=== PATIENT | male | born 1965 | race Caucasian/White ===

== ENCOUNTER 2019-01-03 07:25 | Outpatient (REF) | payer BC, SELFPAY ==
[2019-01-03 13:38] LABS: ALT 31 U/L (12-78); AST 20 U/L (15-37); Albumin 3.7 g/dL (3.4-5.0); Alkaline Phosphatase 86 U/L (46-116); Anion Gap 8.1 mmol/L (3-11); BUN 12 mg/dL (7-18); Bilirubin, Total 0.6 mg/dL (0.2-1.0); CO2 29.9 mmol/L (21.0-32.0); CREATININE 0.88 mg/dL (0.70-1.30); Calcium 9.2 mg/dL (8.5-10.1); Calculated LDL 145; Chloride 103 mmol/L (98-107); Cholesterol 230 mg/dL (50-200); Glucose 99 mg/dL (70-100); HDL Cholesterol 48 mg/dL (40-60); Potassium 4.4 mmol/L (3.5-5.1); Sodium 141 mmol/L (136-145); Total Protein 6.9 g/dL (6.4-8.2); Triglyceride 187 mg/dL (30-150)
== END 2019-01-03 07:45 ==
LOC: NCHCN 07:25
PROVIDERS: PCP Nurse Practitioner Family; Visit Provider Nurse Practitioner Family
DX: I10 Essential (primary) hypertension (principal); R74.0 Nonspecific elevation of levels of transaminase and lactic acid dehydrogenase [LDH]; Z13.220 Encounter for screening for lipoid disorders
CPT/HCPCS: 80053; 80061; 83721

== ENCOUNTER 2019-04-15 11:12 | Day surgery (SDC) | payer BC, SELFPAY ==
--- NOTE | 2019-04-15 06:47 | W.COLOREPORT ---
Date of service: 04/15/19 Time of Service: 12:10 Colonoscopy Report Date of procedure: 04/15/19 Pre-op diagnosis general: Colon Cancer Screening Post-op diagnosis procedure note: other (Colorectal polyps and diverticulosis) Procedure: Colonoscopy with polypectomy by cold forceps and hot snare Surgeon: Yolanda Juárez Anesthesia proc note operative: other (General/ ASA 2 /Rohit Doherty, ABHIJEET) Estimated blood loss (mL): 3 Pathology: other (Ascending polyp x1, sigmoid polyp x1, rectal polyp x1) Complications: None Disposition: same day Indications: Mr. Morton is a pleasant 53 year old male seen in the office for their first colonoscopy. Risks, benefits and complications have been reviewed. Complications include but are not limited to bleeding, pain, perforation, missed small lesion/polyp, sore throat, aspiration and adverse reaction to the medications. Questions were entertained and answered to their satisfaction and they wished to proceed. No guarantees were given or implied. Prep: Miralax/Dulcolax Procedure Start Time: 12:10 Procedure End Time: 12:47 Retraction Time: 29 minutes Findings: 3 large polyps removed with hot snare One small sessile polyp removed with cold forceps Procedure Description: After informed consent was obtained the patient was taken to the procedure room and placed in a left decubitous position. Monitors were applied and a time out was done. The patients name, date of , procedure, allergies to medications and metal in their body was reviewed. The patient was then sedated. Once sedated and comfortable a rectal exam was done. External exam was normal. Internal exam revealed a normal sphincter tone and no palpable masses. The prostate felt smooth. The scope was then introduced and retrofelexed. No internal hemorrhoids were identified. There was a >1 cm pedunculated polyp noted in the rectum. The scope was then advanced to the cecum without difficulty. The TI and appendiceal orifice were identified. The prep was adequate. The scope was then slowly retracted over 29 minutes back into the rectum. Polyps were removed with a hot snare in the ascending colon, one with cold forceps in the sigmoid colon and another with a hot snare in the rectum. Mild to moderate diverticulosis was noted in the descending and sigmoid colon. The scope was removed and the patient was woken up and taken back to Same day surgery in stable condition. The patient tolerated the procedure well and there were no immediate complications. Follow up: Follow up depends on final pathology.
--- NOTE | 2019-04-15 06:49 | W.PM.DSUDISC ---
Discharge Plan Disposition Patient Disposition: HOME Condition: Good Discharge Details Reason For Visit: Colonoscopy Attending Provider: Yolanda Juárez Primary Care Provider: Makayla Figueroa Home Meds and New Rx's Prescriptions: Continued lisinopril 10 mg tablet 10 mg PO DAILY RF: 0 aspirin [Adult Aspirin Regimen] 81 mg tablet,delayed release (DR/EC) 81 mg PO DAILY RF: 0 Discontinued polyethylene glycol 3350 17 gram/dose powder 238 g PO ONCE Qty: 238 RF: 0 bisacodyl [Dulcolax (bisacodyl)] 5 mg tablet,delayed release (DR/EC) 5 mg PO ONCE Qty: 4 RF: 0 Discharge Instructions Instructions: Colonoscopy (DC), Diverticulosis (DC), Colorectal Polyps (GEN) Additional Instructions: Findings: 3 polyps Moderate diverticulosis Follow up: depends on final pathology Please call if you develop: fevers >101.5 Nausea or Vomiting Abdominal pain that is not transient DAY SURGERY UNIT POST ENDOSCOPY INSTRUCTIONS 1. Because there will be medication in your system for the next 24 hours, you may feel a little sleepy. Your coordination will be affected. Therefore: a. Do not drive or operate dangerous equipment for 24 hours. b. Do not drink alcohol beverages for 24 hours (not even beer). c. Plan to go home and rest for the day. 2. Generally there are no restrictions on your activity after a day or so has gone by, but you may feel a bit fatigued for a few days. 3 After you arrive home you may have a light meal and return to a normal diet as you can tolerate it without feeling sick to your stomach. 4. After surgery, you may feel pain or discomfort. This should be only transient, but if it persists please contact your doctor. 5. If there are any questions regarding the findings of your procedure, please feel free to contact your doctor. 6. If you are unable to contact your doctor with a problem, contact the hospital at [phone]. 7. Continue all your regular medications unless directed otherwise. I understand the above instructions and have no questions. Signature of Patient or Responsible Adult Escort Date/Time Name of Responsible Adult Escort Signature of Nurse Date/Time Referrals: Makayla Figueroa [Primary Care Provider] - (in 2-3 weeks for HIgh BP ) Activity:: Activity as Tolerated Diet:: High Fiber diet Discharge Orders Discharge Orders: Discharge Order (Routine); Ordered 04/15/19 Ordered By: Yolanda Juárez DS: Diagnosis Discharge Diagnosis (1) S/P colonoscopy: Status: Acute (2) Colorectal polyps: Status: Acute (3) Diverticulosis: Status: Acute
[2019-04-15 11:40] VITALS: BP 172/89; PULSE 68; RESP 16; TEMP 36.7; O2SAT 99
[2019-04-15] MEDS: Lactated Ringers 1,000 ML 80 ML IV (11:55)
--- NOTE | 2019-04-15 12:20 | BOWEL_PTH ---
PATIENT: Jose Guadalupe Morton LOC: [facility] U#:[id number] AGE/SX: 53/M ROOM: RE04/15/[address]: Yolanda Juárez MD : 1965 BED: DIS: 04/15/2019 SPEC #: [id number] RECD: 04/15/19 18:19 STATUS: [facility] REQ #: [id number] RACHID: 04/15/19 12:[address]: Yolanda Juárez DEPT: Surgical Specimen RECD BY: Liz Amaya ENTERED: 04/15/19 18:20 SP TYPE: Bowel OTHR DR: Makayla Figueroa Tissues: 1 - BIOPSY BOWEL 2 - BIOPSY BOWEL 3 - BIOPSY BOWEL Procedures: GROSS AND MICRO LEVEL 4 Comments: [id number]
[2019-04-15 13:20] VITALS: BP 156/74; PULSE 59; RESP 16; TEMP 36.7; O2SAT 97
== END 2019-04-15 13:46 | disposition home or self-care (01) ==
LOC: SUR 11:12
PROVIDERS: PCP Nurse Practitioner Family; Visit Provider Surgery
PROC: 0DJD8ZZ Inspection of Lower Intestinal Tract, Via Natural or Artificial Opening Endoscopic (ICD-10-PCS; CPT 45378; principal; 2019-04-15 12:15)
DX: Z12.11 Encounter for screening for malignant neoplasm of colon (principal); K57.30 Diverticulosis of large intestine without perforation or abscess without bleeding; D12.2 Benign neoplasm of ascending colon; K63.5 Polyp of colon; D12.8 Benign neoplasm of rectum; I10 Essential (primary) hypertension
CPT/HCPCS: 45385; 45380; 88305

== ENCOUNTER 2019-08-14 18:46 | Inpatient (IN) | payer BC, SELFPAY ==
[2019-08-14 18:51] VITALS: BP 175/104; PULSE 84; RESP 16; TEMP 36.7; O2SAT 97
--- NOTE | 2019-08-14 18:58 | NUR.NOTE ---
Left side abd pain since 08/11/2019. Pt was seen at PCP office on 08/12/2019. was told to eat bland food, CT would be ordered. Pt states no CT has been ordered yet, having continued pain. Worse after eating. Denies N/V. + Watery stools. subjective fevers.
--- NOTE | 2019-08-14 19:06 | ED.GENADUL_ITS ---
Discharge Plan Discharge Details Chief Complaint: Abd Prob Primary Care Provider: Makayla Figueroa ED Provider: Gem Kwon Home Meds and New Rx's Prescriptions: No Action lisinopril 10 mg tablet 10 mg PO DAILY RF: 0 aspirin [Adult Aspirin Regimen] 81 mg tablet,delayed release (DR/EC) 81 mg PO DAILY RF: 0 Medical Decision Making 53 year old male presents with LLQ abdominal pain associated with diarrhea. FINDINGS: Lungs: There are slight dependent atelectatic changes at the lung bases. Heart: The visualized portions of the heart and pericardium are unremarkable. Liver: The liver is within normal limits. Gallbladder and bile ducts: The gallbladder is within normal limits. Pancreas: The pancreas is within normal limits. Spleen: The spleen is unremarkable. Adrenals: The adrenal glands are within normal limits. Kidneys and ureters: The kidneys are within normal limits. Stomach and bowel: There is mucosal thickening and diverticuli at the level of the junction of the descending and sigmoid colons. This is the suspicious for acute diverticulitis. There is pericolonic inflammation of the mesenteric fat. A small pericolonic abscess is suspected measuring approximately 2.6 cm. There is no evidence of a perforation. Appendix: The appendix is visualized and is within normal limits. SIMON CLAY Preliminary Radiology Report CHILD CARE DEVELOPMENT SPECIALIST (QA) DISCREPANCY? If there is a discrepancy between the preliminary and final interpretation, please notify [facility] via [email or web address]. If you do not have access to our QA portal, call our QA team at [phone] CONFIDENTIALITY STATEMENT This report is intended only for the use of the referring physician, and only in accordance with law, If you received this in error, call [phone] Page 2 of 2 Intraperitoneal space: See Stomach And Bowel Finding. Vasculature: Unremarkable. No abdominal aortic aneurysm. Lymph nodes: No enlarged lymph nodes. Bladder: The urinary bladder is unremarkable. Reproductive: The prostate and seminal vesicles are within normal limits. Bones/joints: There are degenerative changes of the thoracic and lumbar spines. There is degenerative disc disease at L5-S1. There is a disc osteophyte complex at this level. Soft tissues: There is a fat containing umbilical hernia. There are bilateral small fat containing incipient inguinal hernias. IMPRESSION: Diverticulitis as above. Please see discussion above. Osseous findings as above CT results are noted above. Page placed for surgery transformation manager. Dr. Bob. Spoke with Dr. Bob who agrees to admit patient, patient informed and aware of plan of care. Cipro and Flagyl IVPB ordered. Patient was hemodynamically stable and alert and oriented at this time. Differential Diagnosis Differential Diagnosis: diverticulitis, gastroenteritis, kidney stone, Lab Data Lab results reviewed: Yes I reviewed the patient's lab results. HPI General Date/Time Provider Initiated Documentation: 08/14/19 18:50 . Limitations to Documentation: no limitations . Information obtained by: patient . History of Present Illness 53 year old M presents to the emergency department with the chief complaint of abdominal pain, described as moderate, with intensity rated at 6. Quality is described as sharp, and is localized to the abdomen. Patient reports no radiation. Patient started experiencing this day(s) (5) and it has been intermittent. No relieving factors improve symptom(s), Patient notes diaphoresis and other (diarrhea); denies nausea/vomiting. Patient did receive the following treatments prior to arrival, none HPI Narrative: 53 y/o male presents with LLQ abdominal pain. He reports onset 5 days ago associated with diarrhea and intermittent diaphoresis. Denies dysuria, or vomiting. No abdominal surgical history. Related Data Home Medications Medication Instructions Recorded Confirmed aspirin 81 mg tablet,delayed 81 mg PO DAILY 01/25/19 08/14/19 release lisinopril 10 mg tablet 10 mg PO DAILY 01/25/19 08/14/19 Allergies Allergy/AdvReac Type Severity Reaction Status Date / Time No Known Allergies Allergy Verified 04/15/19 11:38 General Stated Complaint: Abd Prob DAMIAN: 3 Review of Systems Constitutional Constitutional: Reports as per HPI, Reports fatigue and Denies fever(s) Respiratory Respiratory: Reports other (SOB) Gastrointestinal Gastrointestinal: Reports abdominal pain, Reports diarrhea, Reports loose stools and Denies vomiting Genitourinary Genitourinary: Denies difficulty urinating and Denies dysuria Endocrine Endocrine: Reports fatigue [facility] Medical History Alcohol dependence (Chronic) Chest pain (Acute) one episode 10/2017 while working and running up stairs, negative w/up in ER and negative stress test, no further symptoms since this one episode. Diverticulosis (Acute) Elevated serum aspartate aminotransferase level (Chronic) HTN (hypertension) (Chronic) Snoring (Chronic) Surgical History Hx of tonsillectomy (Chronic) S/P colonoscopy (Acute ~04/15/19) sessile serrated adenoma x1; tubulovillous adenoma x1. Social History Smoking/Tobacco Use Status: Never Alcohol Intake: current Alcohol Intake frequency: 0-2 drinks per day Alcohol type: beer Drug use: Socially Substance use type: marijuana Do you feel safe at home: Yes Do you feel safe in your relationship?: Yes Exam Const General: cooperative, healthy appearing, comfortable and no acute distress Orientation: alert, awake and oriented x3 Resp Effort & Inspection: normal respiratory effort Auscultation: clear to auscultation bilaterally, no rales, no rhonchi and no wheezes Cardio Rhythm: regular rhythm Heart Sounds: S1 normal and S2 normal GI Inspection: normal to inspection, no abdominal wall ecchymosis and non-distended Palpation: soft Auscultation: hyperactive bowel sounds Rectal Exam: tenderness (LLQ abdominal pain) Course Vital Signs Vital signs: Vital Signs Temperature 36.7 C 08/14/19 18:51 Pulse 84 08/14/19 18:51 Respiratory Rate 16 08/14/19 18:51 Blood Pressure 175/104 H 08/14/19 18:51 Pulse Oximetry 97 08/14/19 18:51 Temperature 36.7 C 08/14/19 18:51 Temperature Source Skin 08/14/19 18:51 Pulse 84 08/14/19 18:51 Respiratory Rate 16 08/14/19 18:51 Respiratory Effort 08/14/19 18:57 Blood Pressure 175/104 H 08/14/19 18:51 Blood Pressure Position Sitting 08/14/19 18:51 Pulse Oximetry 97 08/14/19 18:51 Oxygen Delivery Method Room Air 08/14/19 18:51 Oxygen Flow Rate 0 08/14/19 18:51 Pain Level 7 08/14/19 18:51 Comment 08/14/19 18:51
[2019-08-14] MEDS: Normal Saline 1,000 ML 1000 ML IV (19:20)
[2019-08-14] MEDS: Ondansetron O.D.T. 4 MG TABEF PO (19:20)
[2019-08-14 19:21] LABS: Abs Immature Grans 0.01 k/cumm (0.0-0.09); Absolute Basophil Count 0.01 k/cumm (0.0-0.2); Absolute Eosinophil Count 0.03 k/cumm (0.0-0.7); Absolute Monocyte Count 0.78 k/cumm (0.11-0.7); Absolute Neutrophil Count 7.68 k/cumm (1.2-6.7); Basophils % 0.1; Eosinophils % 0.3; HCT 44.7 % (40.0-50.0); HGB 14.7 g/dL (13.5-17.5); Immature Grans % 0.1 %; Lymphocytes % 8.6; Mean Corp. HGB Concentration 32.9 g/dL (32.0-36.0); Mean Corpuscular Hemoglobin 31.9 pg (27.0-33.0); Mean Platelet Volume 10.1 fL (8.0-11.0); Monocytes % 8.4; Neutrophils % 82.5; Platelet Count 172 x1000/uL (130-400); RBC 4.61 m/cumm (4.50-6.00); RBC Distribution Width 12.8 % (11.8-14.1); White Blood Cell Count 9.31 k/cumm (4.4-10.8)
[2019-08-14] MEDS: fentaNYL 100 MCG/2 ML VIAL 50 MCG IVP (19:21)
[2019-08-14] MEDS: Normal Saline Flush 10 ML SYR IVP (19:22)
[2019-08-14 19:31] LABS: ALT 20 U/L (16-63); AST 18 U/L (15-37); Albumin 3.6 g/dL (3.4-5.0); Alkaline Phosphatase 85 U/L (46-116); Anion Gap 13.7 mmol/L (3-11); BUN 13 mg/dL (7-18); Bilirubin, Direct 0.22 mg/dL (0.00-0.20); Bilirubin, Total 0.6 mg/dL (0.2-1.0); CO2 27.3 mmol/L (21.0-32.0); CREATININE 0.89 mg/dL (0.70-1.30); Calcium 9.9 mg/dL (8.5-10.1); Chloride 99 mmol/L (98-107); Glucose 96 mg/dL (74-106); Lipase 172 U/L (73-393); Potassium 3.7 mmol/L (3.5-5.1); Sodium 140 mmol/L (136-145); Total Protein 8.3 g/dL (6.4-8.2)
[2019-08-14 19:44] VITALS: BP 162/72; PULSE 78; RESP 16; O2SAT 99
--- NOTE | 2019-08-14 19:44 | NUR.NOTE ---
pain to 7 after fentanyl, pt reports as tolerable. Drinking PO contrast for CT.
[2019-08-14 19:47] LABS: Bilirubin Moderate (Negative); Blood Moderate (Negative); Clarity Sl Cloudy (Clear); Glucose Negative (Negative); Ketones >=160 mg/dL (Negative); Leukocyte Esterase Negative (Negative); Nitrite Negative (Negative); Specific Gravity >= 1.030 (1.005-1.025); Urobilinogen 0.2 EU/dL (Up TO 0.2)
[2019-08-14 19:58] LABS: Bacteria Few HPF (Negative); C & S Indicated? No; WBC 0-2 HPF (0-5)
[2019-08-14] MEDS: Omnipaque 350 MG/ML 50 ML BTL IJ (20:42)
[2019-08-14] MEDS: Omnipaque 350 MG/ML 100 ML BTL IJ (20:42)
--- NOTE | 2019-08-14 20:43 | DI.CT_ITS ---
EXAM: CT ABDOMEN PELVIS W CLINICAL HISTORY: LLQ abdominal pain TECHNIQUE: Post IV and oral contrast. COMPARISON: No exams were available for comparison FINDINGS: Lung bases show minimal dependent changes. The heart size is normal. The liver, gallbladder, pancr eas, spleen, adrenals and kidneys are unremarkable. The appendix appears normal. There is inflammat ion at the lower descending colon. There are multiple diverticula of the descending colon and proxim al sigmoid. The findings are consistent with diverticulitis. There is a small abscess, measuring 2. 5 cm seen within the wall of the at the of the colon at the junction of the descending and sigmoid re gion. There is no free fluid. There is no evidence of bowel obstruction. The stomach and small bow el are unremarkable. There is fat at the umbilicus. The bladder and prostate are unremarkable. Deg enerative changes are seen in the spine greatest at L5-S1. IMPRESSION: Diverticulitis at the with small intramural abscess at the junction of the descending and sigmoid col on.
[2019-08-14] MEDS: Breeza Beverage 473 ML BTL PO ×2 (20:47→20:50)
--- NOTE | 2019-08-14 21:22 | DI.VRAD_ITS ---
PROCEDURE INFORMATION: Exam: CT Abdomen And Pelvis With Contrast Exam date and time: 08/14/2019 7:02 PM Age: 53 years old Clinical indication: Abdominal pain; Localized; Left lower quadrant (llq); Additional info: Abd pain since 08/10/19 TECHNIQUE: Imaging protocol: Computed tomography of the abdomen and pelvis with intravenous contrast. Radiation optimization: All CT scans at this facility use at least one of these dose optimization techniques: automated exposure control; mA and/or kV adjustment per patient size (includes targeted exams where dose is matched to clinical indication); or iterative reconstruction. Contrast material: [id number]; Contrast volume: 100 ml; Contrast route: IV 20G LT AC; COMPARISON: No relevant prior studies available. FINDINGS: Lungs: There are slight dependent atelectatic changes at the lung bases. Heart: The visualized portions of the heart and pericardium are unremarkable. Liver: The liver is within normal limits. Gallbladder and bile ducts: The gallbladder is within normal limits. Pancreas: The pancreas is within normal limits. Spleen: The spleen is unremarkable. Adrenals: The adrenal glands are within normal limits. Kidneys and ureters: The kidneys are within normal limits. Stomach and bowel: There is mucosal thickening and diverticuli at the level of the junction of the descending and sigmoid colons. This is the suspicious for acute diverticulitis. There is pericolonic inflammation of the mesenteric fat. A small pericolonic abscess is suspected measuring approximately 2.6 cm. There is no evidence of a perforation. Appendix: The appendix is visualized and is within normal limits. Intraperitoneal space: See Stomach And Bowel Finding. Vasculature: Unremarkable. No abdominal aortic aneurysm. Lymph nodes: No enlarged lymph nodes. Bladder: The urinary bladder is unremarkable. Reproductive: The prostate and seminal vesicles are within normal limits. Bones/joints: There are degenerative changes of the thoracic and lumbar spines. There is degenerative disc disease at L5-S1. There is a disc osteophyte complex at this level. Soft tissues: There is a fat containing umbilical hernia. There are bilateral small fat containing incipient inguinal hernias. IMPRESSION: Diverticulitis as above. Please see discussion above. Osseous findings as above. Dictated and Authenticated by: Cuco Silva MD. Ordering:KODY Rabago MD
[2019-08-14] MEDS: CIPROFLOXACIN 400 MG/200 ML BAG 200 MG IVPB (21:40)
--- NOTE | 2019-08-14 21:44 | HPE_ITS ---
Date of service: 08/14/19 Time of Service: 21:44 Assessment and Plan Assessment and plan (1) Diverticulitis of intestine with abscess without bleeding: Status: Acute Assessment and plan: admit IV abx and bowel rest has had a recent CE see how he progresses on abx abscess is not alrge enough/organized enough for perc drain. History of Present Illness Consults Consult date: 08/14/19 Pt states the pain started about 4 days ago. He denies trauma or travel. He has been off of work and actually eating healthier. He has never had diverticulitis in the past. He did recent have a CE- this was reviewed. no N/v. + fever /chills. Narrative: Acute diverticulitis w/ abscess. CT adn CE rreviewed. Pt admitted for IV and abx and conservative medical care. 2.6cm abcess. Borderline for perc drainage. Cont w/ conservative management and see how he progresses in the next 48 hrs. He denies any trauma. He is a school bus driver/teacher assistant, and has been off of school, and eating at home, more Review of Systems All systems reviewed & are unremarkable except as noted in HPI and below [facility] Medical History (Updated 08/14/19 @ 21:47 by Cortney Bob DO) Alcohol dependence (Chronic) Chest pain (Acute) one episode 10/2017 while working and running up stairs, negative w/up in ER and negative stress test, no further symptoms since this one episode. Diverticulitis of intestine with abscess without bleeding (Acute) Diverticulosis (Acute) Elevated serum aspartate aminotransferase level (Chronic) HTN (hypertension) (Chronic) Snoring (Chronic) Surgical History Hx of tonsillectomy (Chronic) S/P colonoscopy (Acute ~04/15/19) sessile serrated adenoma x1; tubulovillous adenoma x1. Social History Smoking/Tobacco Use Status: Never Alcohol Intake: current Alcohol Intake frequency: 0-2 drinks per day Alcohol type: beer Drug use: Socially Substance use type: marijuana Do you feel safe at home: Yes Do you feel safe in your relationship?: Yes Meds Home Medications and Allergies Home Medications Medication Instructions Recorded Confirmed Type aspirin 81 mg tablet,delayed 81 mg PO DAILY 01/25/19 08/14/19 History release lisinopril 10 mg tablet 10 mg PO DAILY 01/25/19 08/14/19 History Allergies Allergy/AdvReac Type Severity Reaction Status Date / Time No Known Allergies Allergy Verified 04/15/19 11:38 Exam Const General: cooperative, healthy appearing, comfortable, no acute distress, well developed and well groomed Nutritional Appearance: average body habitus and well nourished Orientation: alert, awake and oriented x3 HENMT Head: normal to inspection, normocephalic and atraumatic Ears: hearing grossly normal bilaterally and external ears normal General nose exam: external nose normal Face and sinus: normal facial exam and sinuses nontender Mouth: oral mucosae normal, lip normal, tongue normal and moist mucous membranes Teeth and gingiva: dentition normal Eyes General: appearance normal, both eyes and all related structures Conjunctivae: conjunctivae normal Sclera: sclerae normal Pupils: PERRL Neck Neck: normal visual inspection and full ROM Chest Chest: normal inspection of the chest Resp Effort & Inspection: normal respiratory effort, able to speak in complete sentences, no cough, no nasal flaring, not tachypneic and no use of accessory muscles Auscultation: clear to auscultation bilaterally, no rales, no rhonchi and no wheezes Cardio Jugular venous pressure: no JVD Rate: regular rate Rhythm: regular rhythm GI Inspection: normal to inspection, no edema and non-distended Palpation: soft, no masses, tender (moderate. + rebound and guarding ) in the LLQ and No ascites Auscultation: normal bowel sounds Skin General skin exam: no rashes or lesions noted Trauma: no lacerations or abrasions Neuro General: alert, oriented x3, oriented, gait normal, moves all extremities, no focal motor deficits and CN's II-XI intact bilaterally Cognition: normal cognition Speech: speech normal Gait: normal gait Motor: muscle tone normal throughout Extrem General: normal to inspection, full ROM and no clubbing, cyanosis or edema Psych Appearance: grossly normal and well kempt Mental Status: mental status grossly normal Speech and Movement: speech and movement normal Affect: normal affect Results Labs Result diagrams: 08/15/19 06:20 08/15/19 06:20 Labs: Laboratory Results - last 24 hr 01/08/14/19 08/14/19 19:10 19:10 19:40 WBC 9.31 RBC 4.61 Hgb 14.7 Hct 44.7 MCV 97.0 H MCH 31.9 MCHC 32.9 RDW 12.8 Plt Count 172 MPV 10.1 Immature Gran % 0.1 Neutrophils % 82.5 Lymphocytes % 8.6 Monocytes % 8.4 Eosinophils % 0.3 Basophils % 0.1 Absolute Neutrophils 7.68 H Absolute Lymphocytes 0.80 L Absolute Monocytes 0.78 H Absolute Eosinophils 0.03 Absolute Basophils 0.01 Sodium 140 Potassium 3.7 Chloride 99 Carbon Dioxide 27.3 Anion Gap 13.7 H BUN 13 Creatinine 0.89 Estimated GFR/1.73 m2 >= 60.00 Glucose 96 Calcium 9.9 Total Bilirubin 0.6 Conjugated Bilirubin 0.22 H AST 18 ALT 20 Alkaline Phosphatase 85 Total Protein 8.3 H Albumin 3.6 Lipase 172 Urine Color Yellow Urine Clarity Sl cloudy Urine pH 6.0 Ur Specific [place] >= 1.030 H Urine Protein 100 H Urine Ketones >=160 H Urine Blood Moderate H Urine Nitrite Negative Urine Bilirubin Moderate H Urine Urobilinogen 0.2 Ur Leukocyte Esterase Negative Urine RBC 3-5 H Urine WBC 0-2 Ur Epithelial Cells Not Applicable Urine Crystals Not Applicable Urine Bacteria Few Urine Mucus Not Applicable Ur Culture Indicated? No Urine Glucose Negative Last Vital Signs Temp 36.7 C 08/14/19 18:51 Pulse 78 08/14/19 19:44 Resp 16 08/14/19 19:44 BP 162/72 H 08/14/19 19:44 Pulse Ox 99 08/14/19 19:44
--- NOTE | 2019-08-14 21:51 | NUR.NOTE ---
Ambulated to BR with steady gait. Plan for admission. pt reports he is daily drinker, denies hx of withdrawal.
[2019-08-14 21:52] VITALS: BP 168/76; PULSE 88; RESP 16; TEMP 37.5; O2SAT 97
[2019-08-14 22:26] VITALS: BP 181/75; PULSE 80; RESP 18; TEMP 37.9; O2SAT 95
[2019-08-14 23:07] LABS: Abs Immature Grans 0.01 k/cumm (0.0-0.09); Absolute Basophil Count 0.01 k/cumm (0.0-0.2); Absolute Eosinophil Count 0.02 k/cumm (0.0-0.7); Absolute Lymphocyte Count 0.75 k/cumm (1.2-3.4); Absolute Neutrophil Count 6.92 k/cumm (1.2-6.7); Basophils % 0.1; Eosinophils % 0.2; HCT 40.8 % (40.0-50.0); HGB 13.6 g/dL (13.5-17.5); Immature Grans % 0.1 %; Lymphocytes % 8.9; Mean Corp. HGB Concentration 33.3 g/dL (32.0-36.0); Mean Corpuscular Hemoglobin 32.2 pg (27.0-33.0); Mean Corpuscular Volume 96.5 fL (80-95); Monocytes % 8.3; Neutrophils % 82.4; Platelet Count 159 x1000/uL (130-400); RBC 4.23 m/cumm (4.50-6.00); RBC Distribution Width 12.8 % (11.8-14.1); White Blood Cell Count 8.41 k/cumm (4.4-10.8)
[2019-08-14] MEDS: Ketorolac 15 MG/ML VIAL IVP (23:14)
[2019-08-14] MEDS: metroNIDAZOLE 500 MG/100 ML BAG 100 MG IVPB (23:14)
[2019-08-14] MEDS: Normal Saline 1,000 ML 150 ML IV (23:15)
[2019-08-14 23:21] VITALS: BP 181/75; PULSE 80; RESP 18; TEMP 37.9; O2SAT 95
[2019-08-14 23:56] LABS: ALT 17 U/L (16-63); AST 10 U/L (15-37); Albumin 2.8 g/dL (3.4-5.0); Alkaline Phosphatase 70 U/L (46-116); Anion Gap 13.2 mmol/L (3-11); BUN 11 mg/dL (7-18); Bilirubin, Total 0.6 mg/dL (0.2-1.0); CO2 22.8 mmol/L (21.0-32.0); CREATININE 0.78 mg/dL (0.70-1.30); Calcium 8.9 mg/dL (8.5-10.1); Chloride 102 mmol/L (98-107); Glucose 120 mg/dL (74-106); Magnesium 1.8 mg/dL (1.8-2.4); Potassium 3.7 mmol/L (3.5-5.1); Sodium 138 mmol/L (136-145); Total Protein 6.8 g/dL (6.4-8.2)
[2019-08-15 00:15] LABS: Troponin I < 0.05 ng/Ml (<0.06)
[2019-08-15] MEDS: ACETAMINOPHEN 1,000 MG/100 ML BTL 400 MG IVPB (01:00)
[2019-08-15 01:21] LABS: TSH (W/Ref FT4) 2.85 uIU/mL (0.36-3.74)
[2019-08-15] MEDS: cefTRIAXone 2 GM/50 ML BAG IVPB (01:59)
[2019-08-15 03:21] VITALS: BP 145/75; PULSE 60; RESP 17; TEMP 36.7; O2SAT 97
[2019-08-15] MEDS: Normal Saline 1,000 ML 150 ML IV ×2 (06:01→14:01)
[2019-08-15 07:00] LABS: Abs Immature Grans 0.01 k/cumm (0.0-0.09); Absolute Basophil Count 0.01 k/cumm (0.0-0.2); Absolute Eosinophil Count 0.07 k/cumm (0.0-0.7); Absolute Lymphocyte Count 1.03 k/cumm (1.2-3.4); Absolute Monocyte Count 0.79 k/cumm (0.11-0.7); Absolute Neutrophil Count 5.11 k/cumm (1.2-6.7); Basophils % 0.1; Immature Grans % 0.1 %; Lymphocytes % 14.7; Mean Corp. HGB Concentration 32.6 g/dL (32.0-36.0); Mean Corpuscular Hemoglobin 31.6 pg (27.0-33.0); Mean Corpuscular Volume 97.1 fL (80-95); Mean Platelet Volume 10.6 fL (8.0-11.0); Monocytes % 11.3; Neutrophils % 72.8; Platelet Count 165 x1000/uL (130-400); RBC 4.43 m/cumm (4.50-6.00); RBC Distribution Width 12.7 % (11.8-14.1); White Blood Cell Count 7.02 k/cumm (4.4-10.8)
[2019-08-15 07:12] LABS: ALT 17 U/L (16-63); AST 16 U/L (15-37); Albumin 2.8 g/dL (3.4-5.0); Alkaline Phosphatase 73 U/L (46-116); Anion Gap 10.2 mmol/L (3-11); BUN 10 mg/dL (7-18); Bilirubin, Total 0.5 mg/dL (0.2-1.0); C-Reactive Protein 16.07 mg/dL (0.0-0.3); CO2 26.8 mmol/L (21.0-32.0); CREATININE 0.82 mg/dL (0.70-1.30); Calcium 9.2 mg/dL (8.5-10.1); Chloride 105 mmol/L (98-107); Glucose 98 mg/dL (74-106); Potassium 4.2 mmol/L (3.5-5.1); Sodium 142 mmol/L (136-145); Total Protein 6.9 g/dL (6.4-8.2)
[2019-08-15 07:15] VITALS: BP 136/60; PULSE 59; RESP 18; TEMP 36.9; O2SAT 97
[2019-08-15] MEDS: Lisinopril 10 MG TAB PO (07:45)
[2019-08-15] MEDS: Enoxaparin 40 MG/0.4 ML SYR SC (07:45)
[2019-08-15] MEDS: Normal Saline Flush 10 ML SYR IVP (07:46)
[2019-08-15] MEDS: metroNIDAZOLE 500 MG/100 ML BAG 100 MG IVPB ×2 (07:46→16:36)
--- NOTE | 2019-08-15 08:40 | INITIAL_ITS ---
- If Service Date Differs Date of service: 08/15/19 Time of Service: 08:40 Care Management Initial Assess REASON FOR HOSPITALIZATION:: Diverticulitis PAST MEDICAL HISTORY/PAST SURGICAL HISTORY:: Medical History: Alcohol dependence (Chronic). Chest pain (Acute). one episode 10/2017 while working and running up stairs, negative w/up in ER and negative stress test, no further symptoms since this one episode. Diverticulitis of intestine with abscess witho ut bleeding (Acute). Diverticulosis (Acute). Elevated serum aspartate aminotransferase level (Chronic). HTN (hypertension) (Chronic). Snoring (Chronic). Surgical History : Hx of tonsillectomy (Chronic). S/P colonoscopy (Acute ~04/15/19). sessile serrated adenoma x1; tubulovillous adenoma x1. PREVIOUS FUNCTIONAL STATUS/SOCIAL/FAMILY SUPPORTS:: Jose Guadalupe lives alone in an apartment in [facility] provided by [facility] [employer] where he works. 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 He has 2 sons who are in college in [place].Jose Guadalupe is independent at baseline and receives no community services. CURRENT FUNCTIONAL STATUS:: Jose Guadalupe was sitting up in bed when CM met with him. He was pleasant and friendly and engaged readily in conversation. Jose Guadalupe stated that he is feeling much better today than he was when admitted. He has been NPO but his diet will be advanced later today.He stated that he is really thirsty and will look forward to being able to drink fluids. ADVANCE DIRECTIVES:: provided with a copy of the [facility] AD forms at his request. Has patient been provided with information about the portal?: Yes Did the patient sign up for the portal?: No CODE STATUS:: Full Code INSURANCE COVERAGE / FINANCIAL ISSUES:: BS CURRENT HOME/COMMUNITY SERVICES/EQUIPMENT:: none PRIMARY CARE PHYSICIAN:: Makayla Figueroa POTENTIAL DISCHARGE NEEDS:: follow up with PCP, surgeon and discharge plan of care PATIENT/FAMILY EDUCATION NEEDS:: Discharge plan, limitations, follow up plan and Ask Me Three. ANTICIPATED BARRIERS TO DISCHARGE:: none identified TRANSPORTATION:: via private vehicle with family PLAN:: Jose Guadalupe will likely be discharged with no new services. He will follow up with his surgeon and discharge plan of care and will transport via private vehicle with friends. CM will continue to support patient, family and discharge planning needs.
--- NOTE | 2019-08-15 14:48 | PGE_ITS ---
Date of Service Date of service: 08/15/19 Time of Service: 14:48 Assessment and Plan Assessment and plan (1) Diverticulitis of intestine with abscess without bleeding: Status: Acute Assessment and plan: cont IV abx cont supportive care prob d/c in am Subjective Subjective Interval history since last seen: Pt is feeling better- less pain. no headaches. No CP or SOB. no productive cough. no dysuria. no leg pain or swelling. Not much of an appetite. He did have a small episode of diarrhea this am- no blood. Exam Const General: cooperative, healthy appearing, comfortable, no acute distress, well developed and well groomed Nutritional Appearance: average body habitus and well nourished Orientation: alert, awake and oriented x3 HENMT Head: normal to inspection, normocephalic and atraumatic Ears: hearing grossly normal bilaterally and external ears normal General nose exam: external nose normal Face and sinus: normal facial exam and sinuses nontender Mouth: oral mucosae normal, lip normal, tongue normal and moist mucous membranes Teeth and gingiva: dentition normal Eyes General: appearance normal, both eyes and all related structures Conjunctivae: conjunctivae normal Sclera: sclerae normal Pupils: PERRL Neck Neck: normal visual inspection and full ROM Chest Chest: normal inspection of the chest Resp Effort & Inspection: normal respiratory effort, able to speak in complete sentences, no cough, no nasal flaring, not tachypneic and no use of accessory muscles Auscultation: clear to auscultation bilaterally, no rales, no rhonchi and no wheezes Cardio Jugular venous pressure: no JVD Rate: regular rate Rhythm: regular rhythm GI Inspection: normal to inspection, no edema and non-distended Palpation: soft, no masses, tender (mild. no peritoneal signs. ) in the LLQ and No ascites Auscultation: normal bowel sounds Skin General skin exam: no rashes or lesions noted Trauma: no lacerations or abrasions Neuro General: alert, oriented x3, oriented, gait normal, moves all extremities, no focal motor deficits and CN's II-XI intact bilaterally Cognition: normal cognition Speech: speech normal Gait: normal gait Motor: muscle tone normal throughout Extrem General: normal to inspection, full ROM and no clubbing, cyanosis or edema Psych Appearance: grossly normal and well kempt Mental Status: mental status grossly normal Speech and Movement: speech and movement normal Affect: normal affect Objective Objective Clinical Data: Abnormal lab results 08/14/19 08/14/19 08/14/19 Range/Units 19:10 19:10 19:40 RBC (4.50-6.00) m/cumm MCV 97.0 H (80-95) fL Absolute Neutrophils 7.68 H (1.2-6.7) k/cumm Absolute Lymphocytes 0.80 L (1.2-3.4) k/cumm Absolute Monocytes 0.78 H (0.11-0.7) k/cumm Anion Gap 13.7 H (3-11) mmol/L Glucose (74-106) mg/dL Conjugated Bilirubin 0.22 H (0.00-0.20) mg/dL AST (15-37) U/L C-Reactive Protein (0.0-0.3) mg/dL Total Protein 8.3 H (6.4-8.2) g/dL Albumin (3.4-5.0) g/dL Ur Specific [place] >= 1.030 H (1.005-1.025) Urine Protein 100 H (Negative) mg/dL Urine Ketones >=160 H (Negative) mg/dL Urine Blood Moderate H (Negative) Urine Bilirubin Moderate H (Negative) Urine RBC 3-5 H (0-2) HPF 08/14/19 08/14/19 08/15/19 Range/Units 22:50 22:50 06:20 RBC 4.23 L (4.50-6.00) m/cumm MCV 96.5 H (80-95) fL Absolute Neutrophils 6.92 H (1.2-6.7) k/cumm Absolute Lymphocytes 0.75 L (1.2-3.4) k/cumm Absolute Monocytes (0.11-0.7) k/cumm Anion Gap 13.2 H (3-11) mmol/L Glucose 120 H (74-106) mg/dL Conjugated Bilirubin (0.00-0.20) mg/dL AST 10 L (15-37) U/L C-Reactive Protein 16.07 H (0.0-0.3) mg/dL Total Protein (6.4-8.2) g/dL Albumin 2.8 L 2.8 L (3.4-5.0) g/dL Ur Specific [place] (1.005-1.025) Urine Protein (Negative) mg/dL Urine Ketones (Negative) mg/dL Urine Blood (Negative) Urine Bilirubin (Negative) Urine RBC (0-2) HPF 08/15/19 Range/Units 06:20 RBC 4.43 L (4.50-6.00) m/cumm MCV 97.1 H (80-95) fL Absolute Neutrophils (1.2-6.7) k/cumm Absolute Lymphocytes 1.03 L (1.2-3.4) k/cumm Absolute Monocytes 0.79 H (0.11-0.7) k/cumm Anion Gap (3-11) mmol/L Glucose (74-106) mg/dL Conjugated Bilirubin (0.00-0.20) mg/dL AST (15-37) U/L C-Reactive Protein (0.0-0.3) mg/dL Total Protein (6.4-8.2) g/dL Albumin (3.4-5.0) g/dL Ur Specific [place] (1.005-1.025) Urine Protein (Negative) mg/dL Urine Ketones (Negative) mg/dL Urine Blood (Negative) Urine Bilirubin (Negative) Urine RBC (0-2) HPF Vital Signs Temperature 36.9 C 08/15/19 07:15 Temperature Source Tympanic 08/15/19 07:15 Pulse 59 L 08/15/19 07:15 Pulse Rhythm Regular 08/15/19 07:45 Respiratory Rate 18 08/15/19 07:15 Respiratory Effort Non-Labored 08/15/19 07:45 Respiratory Depth Normal 08/15/19 07:45 Respiratory Pattern Normal 08/15/19 07:45 Blood Pressure 136/60 08/15/19 07:15 Blood Pressure Position Sitting 08/14/19 18:51 Pulse Oximetry 97 08/15/19 07:15 Oxygen Delivery Method Room Air 08/15/19 07:15 Oxygen Flow Rate 0 08/15/19 07:15 Pain Level 0 08/15/19 07:15 Comment 08/14/19 18:51 Intake & Output 08/14/19 08/15/19 08/15/19 23:59 11:59 23:59 Intake Total 999 / 999 Balance 999 Weight 99.79 kg Intake: IV 999 Other: Urine Color Pale Yellow Urine Appearance Clear Clear Urine Odor None Comment pt denies any urinary issues Voiding Methods Toilet Toilet Laboratory Results WBC 7.02 k/cumm (4.4-10.8) 08/15/19 06:20 RBC 4.43 m/cumm (4.50-6.00) L 08/15/19 06:20 Hgb 14.0 g/dL (13.5-17.5) 08/15/19 06:20 Hct 43.0 % (40.0-50.0) 08/15/19 06:20 MCV 97.1 fL (80-95) H 08/15/19 06:20 MCH 31.6 pg (27.0-33.0) 08/15/19 06:20 MCHC 32.6 g/dL (32.0-36.0) 08/15/19 06:20 RDW 12.7 % (11.8-14.1) 08/15/19 06:20 Plt Count 165 x1000/uL (130-400) 08/15/19 06:20 MPV 10.6 fL (8.0-11.0) 08/15/19 06:20 Immature Gran % 0.1 % 08/15/19 06:20 Neutrophils % 72.8 08/15/19 06:20 Lymphocytes % 14.7 08/15/19 06:20 Monocytes % 11.3 08/15/19 06:20 Eosinophils % 1.0 08/15/19 06:20 Basophils % 0.1 08/15/19 06:20 Absolute Neutrophils 5.11 k/cumm (1.2-6.7) 08/15/19 06:20 Absolute Lymphocytes 1.03 k/cumm (1.2-3.4) L 08/15/19 06:20 Absolute Monocytes 0.79 k/cumm (0.11-0.7) H 08/15/19 06:20 Absolute Eosinophils 0.07 k/cumm (0.0-0.7) 08/15/19 06:20 Absolute Basophils 0.01 k/cumm (0.0-0.2) 08/15/19 06:20 Sodium 142 mmol/L (136-145) 01/16/20 06:20 Potassium 4.2 mmol/L (3.5-5.1) 08/15/19 06:20 Chloride 105 mmol/L (98-107) 08/15/19 06:20 Carbon Dioxide 26.8 mmol/L (21.0-32.0) 08/15/19 06:20 Anion Gap 10.2 mmol/L (3-11) 08/15/19 06:20 BUN 10 mg/dL (7-18) 08/15/19 06:20 Creatinine 0.82 mg/dL (0.70-1.30) 08/15/19 06:20 Estimated GFR/1.73 m2 >= 60.00 (mL/min/1.73m2) 08/15/19 06:20 Glucose 98 mg/dL (74-106) 08/15/19 06:20 Calcium 9.2 mg/dL (8.5-10.1) 08/15/19 06:20 Magnesium 1.8 mg/dL (1.8-2.4) 08/14/19 22:50 Total Bilirubin 0.5 mg/dL (0.2-1.0) 08/15/19 06:20 Conjugated Bilirubin 0.22 mg/dL (0.00-0.20) H 08/14/19 19:10 AST 16 U/L (15-37) 08/15/19 06:20 ALT 17 U/L (16-63) 08/15/19 06:20 Alkaline Phosphatase 73 U/L (46-116) 08/15/19 06:20 Troponin I < 0.05 ng/Ml (<0.06) 08/14/19 22:50 C-Reactive Protein 16.07 mg/dL (0.0-0.3) H 08/15/19 06:20 Total Protein 6.9 g/dL (6.4-8.2) 08/15/19 06:20 Albumin 2.8 g/dL (3.4-5.0) L 08/15/19 06:20 Lipase 172 U/L (73-393) 08/14/19 19:10 TSH 2.85 uIU/mL (0.36-3.74) 08/14/19 21:37 Urine Color Yellow (Yellow) 08/14/19 19:40 Urine Clarity Sl cloudy (Clear) 08/14/19 19:40 Urine pH 6.0 (5-8) 08/14/19 19:40 Ur Specific [place] >= 1.030 (1.005-1.025) H 08/14/19 19:40 Urine Protein 100 mg/dL (Negative) H 08/14/19 19:40 Urine Ketones >=160 mg/dL (Negative) H 08/14/19 19:40 Urine Blood Moderate (Negative) H 08/14/19 19:40 Urine Nitrite Negative (Negative) 08/14/19 19:40 Urine Bilirubin Moderate (Negative) H 08/14/19 19:40 Urine Urobilinogen 0.2 EU/dL (Up TO 0.2) 08/14/19 19:40 Ur Leukocyte Esterase Negative (Negative) 08/14/19 19:40 Urine RBC 3-5 HPF (0-2) H 08/14/19 19:40 Urine WBC 0-2 HPF (0-5) 08/14/19 19:40 Ur Epithelial Cells Not Applicable 08/14/19 19:40 Urine Crystals Not Applicable 08/14/19 19:40 Urine Bacteria Few HPF (Negative) 08/14/19 19:40 Urine Mucus Not Applicable 08/14/19 19:40 Ur Culture Indicated? No 08/14/19 19:40 Urine Glucose Negative mg/dL (Negative) 08/14/19 19:40
--- NOTE | 2019-08-15 15:08 | PHARADMIT ---
Admission Pharmacy Clinical Review DIVERTICULITIS Code Status Full Code Current Weight Wgt-99.79 kg Renally Cleared and Narrow Therapeutic Index Meds CrCl~ 108 mL/min Meds-OK QTc Value / Action Taken NONE BP Control, Fever BP-136/60 Tmax-37.9C Electrolytes reviewed Na-142 K+4.2 Mag-1.8 DVT Prophylaxis Lovenox 40mg Opiate Usage / Scheduled Bowel Regimen Ordered Yes No Plt/SCr for Heparin / Enoxaparin Plts-165 SCr-0.82 INR for Warfarin na H/H stable, WBC/Bands H&H-14.0/43.0 WBC- 7.02 Antibiotic appropriateness Rocephin, Flagyl IV Cultures and Sensitivities none Surgical ABX d/c within 24 hr na DM control / Insulin Dosing BG-98 Heart Failure (Check EF%) (JOSE FRANCISCO's, B-Block, Diuretics) Lisinopril IV to PO Switch No Home Meds Reviewed Yes Home Meds Not Ordered ASA Comments RCRP-16.07
[2019-08-15 15:10] VITALS: BP 163/86; PULSE 66; RESP 18; TEMP 37; O2SAT 97
[2019-08-15] MEDS: FAMOTIDINE 20 MG/50 ML BAG 200 MG IVPB (15:53)
[2019-08-15 22:55] VITALS: BP 163/77; PULSE 60; RESP 17; TEMP 36.8; O2SAT 97
[2019-08-16] MEDS: metroNIDAZOLE 500 MG/100 ML BAG 100 MG IVPB ×2 (01:26→07:45)
[2019-08-16] MEDS: cefTRIAXone 2 GM/50 ML BAG IVPB (02:30)
[2019-08-16] MEDS: Normal Saline 1,000 ML 150 ML IV ×2 (02:45→12:06)
[2019-08-16] MEDS: FAMOTIDINE 20 MG/50 ML BAG 200 MG IVPB (04:08)
[2019-08-16 07:30] VITALS: BP 161/78; PULSE 63; RESP 18; TEMP 36.7; O2SAT 97
[2019-08-16] MEDS: Lisinopril 10 MG TAB PO (07:44)
[2019-08-16] MEDS: Enoxaparin 40 MG/0.4 ML SYR SC (07:45)
[2019-08-16] MEDS: Normal Saline Flush 10 ML SYR IVP (07:45)
--- NOTE | 2019-08-16 11:06 | DSE_ITS ---
Date of service: 08/16/19 Time of Service: 11:06 DS: Diagnosis Discharge Diagnosis (1) Diverticulitis of intestine with abscess without bleeding: Status: Acute Discharge Plan Disposition Patient Disposition: HOME Condition: Improving Discharge Details Chief Complaint: Abd Prob Reason For Visit: DIVERTICULITIS Admit Date/Time: 08/14/19 21:34 Admit Provider: Cortney Bob Attending Provider: Cortney Bob Primary Care Provider: Makayla Figueroa ED Provider: Gem Kwon Hospital Course Hospital Course: pt admitted on 08/14 w/ acute diverticiulitis and small unorganized abcess. He has done well adn feels signif better on IV abx. He is tolerating liquids. no n/v, no fever/chills. mild crarmpy pain in LLQ. no bleeding. he has had a recent CE. He will be d/c'ed home today on rp/flagy and f/u in office on monday. low fiber diet. Home Meds and New Rx's Prescriptions: New ciprofloxacin HCl 500 mg tablet 500 mg PO Q12H 5 Days Qty: 10 RF: 0 metronidazole 500 mg tablet 500 mg PO TID 5 Days Qty: 15 RF: 0 Lactobacillus acidophilus 0.5 mg (100 million cell) tablet 50 mmu cells PO BID Qty: 60 RF: 0 Continued lisinopril 10 mg tablet 10 mg PO DAILY RF: 0 aspirin [Adult Aspirin Regimen] 81 mg tablet,delayed release (DR/EC) 81 mg PO DAILY RF: 0 Discharge Instructions Additional Instructions: -Rest!!!! Your body needs sleep in order to heal itself -8-12 glasses of water a day Coffee/caffeinated beverages and alcohol don't count. -Probiotics for 30 days after you have been on antibiotics Do NOT drink alcohol while taking flagyl. It will induce intense vomiting tylenol or ibuprofen for pain, and heating pad. F/u w/ Dr. Bob on Monday Gastrointestinal Soft Diet Overview Overview What is a gastrointestinal soft diet? This diet is soft in texture, low in fiber, and easy to digest. The goal is to decrease) in the bowel that may cause and discomfort. This diet is often used after abdominal surgery or as a transitional diet after flares. Meats & Meat Substitutes ? Foods Allowed: Chicken, turkey, fish, tender cuts of beef and pork, ground meats, eggs, creamy nut butters, tofu, skinless hot dogs, sausage patties without whole spices ? Foods to Avoid : Tough, fibrous meats with gristle, meat with casings (hot dogs, sausage, kielbasa), lunch meats with whole spices, shellfish, beans, chunky peanut butter, nuts Fruits and Juices ? Foods Allowed: Fruit juices without pulp, banana, avocado, applesauce, canned peaches and pears, cooked fruit without the skin/seeds ? Foods to Avoid: Juices with pulp, fresh fruit (except banana and avocado), dried fruits, canned fruit cocktail and pineapple, coconut, frozen/thawed berries Vegetables ? Foods Allowed: Well-cooked or canned vegetables, potatoes without skin, tomato sauces, vegetable juice ? Foods to Avoid: Raw vegetables, all corn, all mushrooms, stewed tomatoes, potato skins, stir-parnell vegetables, sauerkraut, pickles, olives, all dried beans, peas, and legumes Cereals and Grains ? Foods Allowed: Low- fiber dry or cooked cereals (less than 2 grams fiber per serving), white rice, pasta, macaroni, or noodles ? Foods to Avoid: Cereals with nuts, berries, dried fruits, whole grain cereals, bran cereals, granola, brown or wild rice, whole grain pasta Breads and Crackers ? Foods Allowed: White/refined breads and rolls, plain bagel, toast, plain crackers, cheryl crackers ? Foods to Avoid: Whole grain breads- including white whole grain; bread/ rolls with raisins, nuts or seeds, multi-grain crackers Dairy ? Foods Allowed: Milk, cheese, yogurt, milkshakes, pudding, ice cream, cottage cheese, sherbet ; lactose free or low lactose versions if lactose intolerant ? Foods to Avoid: Dairy product mixed with fresh fruit (except banana), berries, nuts or seeds Desserts ? Foods Allowed: Plain cake, pudding, custard, ice cream, sherbet, gelatin, fruit whips ? Foods to Avoid: Any dessert that contains nuts, dried fruits, coconut, or fruits with seeds Herbs and Spices ? Foods Allowed: All ground spices or herbs, salt ? Foods to Avoid: Whole spices such as peppercorns, whole cloves, anise seeds, celery seeds, chandana, dorina seeds, and fresh herbs Snacks/Other Foods ? Foods Allowed: Sugar, honey, jelly, mayonnaise, mustard, soy sauce, oil, butter, margarine, marshmallows, cookies without dried fruits or nuts, snack chips and pretzels using refined flours ? Foods to Avoid: Carbonated beverages, jams or jellies with seeds, popcorn After several weeks, slowly start to reintroduce the ?Foods to Avoid? back into your diet unless your doctor has told you otherwise. Try a small portion of one of these foods each day. If it does not bother you within 24 hours, it can be added to your diet. Continue to add new foods in this way. Some people may continue to have food sensitivities and may need to continue to avoid certain foods. If you cannot tolerate a food, avoid that food for a few weeks before you try it again. Guidelines when eating 1. Avoid any food that you cannot tolerate or that causes gas, bloating, or stomach pain. 2. Make time for your meals. Do not eat while you are in a hurry. Cut your food into small pieces. Chew each bite to a mashed potato consistency. Do not ea t when you cannot concentrate on chewing well. 3. Drink at least 6-8 cups of fluid per day Fluids include: water, coffee, tea, juice, milk, popsicles, soups, gelatin, pudding, ice cream, sherbet, and yogurt. In addition, choose caffeine-free beverages more often, especially if you are having diarrhea. 4. A daily multivitamin may be recommended if diet is limited in amounts or variety of foods. Do not take any herbal supplements without first checking with your doctor. Activity:: No strenuous activity or lifting over 20 pounds x 2 weeks Equipment/Supplies:: No Equipment Needed Diet:: Low fiber diet x1 week DS: Summary Status at Discharge Functional status at discharge: independent ambulation Overall status at discharge: patient is back to baseline Mental Status: mental status grossly normal Speech and Movement: speech and movement normal Mood: congruent mood Affect: normal affect Exam Psych Mental Status: mental status grossly normal Speech and Movement: speech and movement normal Mood: congruent mood Affect: normal affect DS: Data Vitals/I&O Vitals and I&O: Vital Signs Temperature 36.7 C 08/16/19 07:30 Temperature Source Tympanic 08/16/19 07:30 Pulse 63 08/16/19 07:30 Pulse Rhythm Regular 08/16/19 01:46 Respiratory Rate 18 08/16/19 07:30 Respiratory Effort Non-Labored 08/16/19 01:46 Respiratory Depth Normal 08/16/19 01:46 Respiratory Pattern Normal 08/16/19 01:46 Blood Pressure 161/78 H 08/16/19 07:30 Blood Pressure Position Sitting 08/14/19 18:51 Pulse Oximetry 97 08/16/19 07:30 Oxygen Delivery Method Room Air 08/16/19 07:30 Oxygen Flow Rate 0 08/16/19 07:30 Fraction of Inspired Oxygen (FIO2) 21 08/16/19 01:46 Pain Level 2 08/16/19 07:30 Comment 08/16/19 07:30 Intake & Output 08/15/19 08/15/19 08/16/19 11:59 23:59 11:59 Intake Total 1100 / 3300 2200 / 3300 1150 / 1150 Balance 1100 / 3300 2200 / 3300 1150 / 1150 Intake: IV 1100 / 2400 1300 / 2400 1150 / 1150 Oral 900 / 900 Other: Urine Color Pale Yellow Urine Appearance Clear Clear Clear Urine Odor None Comment pt denies any urinary issues voiding independently. Voiding Methods Toilet Toilet Toilet [facility] Medical History (Updated 08/14/19 @ 21:47 by Cortney Bob DO) Alcohol dependence (Chronic) Chest pain (Acute) one episode 10/2017 while working and running up stairs, negative w/up in ER and negative stress test, no further symptoms since this one episode. Diverticulitis of intestine with abscess without bleeding (Acute) Diverticulosis (Acute) Elevated serum aspartate aminotransferase level (Chronic) HTN (hypertension) (Chronic) Snoring (Chronic) Surgical History Hx of tonsillectomy (Chronic) S/P colonoscopy (Acute ~04/15/19) sessile serrated adenoma x1; tubulovillous adenoma x1. Social History Smoking/Tobacco Use Status: Never Alcohol Intake: current Alcohol Intake frequency: 0-2 drinks per day Alcohol type: beer Drug use: Socially Substance use type: marijuana Do you feel safe at home: Yes Do you feel safe in your relationship?: Yes
--- NOTE | 2019-08-16 11:29 | W.PM.PROGNOT ---
Date of Service Date of service: 08/16/19 Time of Service: 11:29 Assessment and Plan Assessment and plan (1) HTN (hypertension): Status: Chronic (2) Diverticulitis of intestine with abscess without bleeding: Status: Acute Assessment and plan: will try low fiber diet and see how this goes. rest and fluids pt had recent CE transition to high fiber diet in 1-2 wks F/u in clinic on mon (3) Diverticulosis: Status: Acute Assessment and plan: Procedure Description: After informed consent was obtained the patient was taken to the procedure room and placed in a left decubitous position. Monitors were applied and a time out was done. The patients name, date of , procedure, allergies to medications and metal in their body was reviewed. The patient was then sedated. Once sedated and comfortable a rectal exam was done. External exam was normal. Internal exam revealed a normal sphincter tone and no palpable masses. The prostate felt smooth. The scope was then introduced and retrofelexed. No internal hemorrhoids were identified. There was a >1 cm pedunculated polyp noted in the rectum. The scope was then advanced to the cecum without difficulty. The TI and appendiceal orifice were identified. The prep was adequate. The scope was then slowly retracted over 29 minutes back into the rectum. Polyps were removed with a hot snare in the ascending colon, one with cold forceps in the sigmoid colon and another with a hot snare in the rectum. Mild to moderate diverticulosis was noted in the descending and sigmoid colon. The scope was removed and the patient was woken up and taken back to Same day surgery in stable condition. The patient tolerated the procedure well and there were no immediate complications. Follow up: Follow up depends on final pathology. CE report from 12/2018 Subjective Subjective Interval history since last seen: Pt is doing betterl. no headaches. No CP or SOB. no productive cough. no dysuria. no leg pain or swelling. Bowels are loose and watery. no blood. Had some cramping w/ cl liquids yest. non today. wants to eat more. will see how does w/ low fiber diet today. Really wants to go home. Exam Const General: cooperative, healthy appearing, comfortable, no acute distress, well developed and well groomed Nutritional Appearance: average body habitus and well nourished Orientation: alert, awake and oriented x3 HENMT Head: normal to inspection, normocephalic and atraumatic Ears: hearing grossly normal bilaterally and external ears normal General nose exam: external nose normal Face and sinus: normal facial exam and sinuses nontender Mouth: oral mucosae normal, lip normal, tongue normal and moist mucous membranes Teeth and gingiva: dentition normal Eyes General: appearance normal, both eyes and all related structures Conjunctivae: conjunctivae normal Sclera: sclerae normal Pupils: PERRL Neck Neck: normal visual inspection and full ROM Chest Chest: normal inspection of the chest Resp Effort & Inspection: normal respiratory effort, able to speak in complete sentences, no cough, no nasal flaring, not tachypneic and no use of accessory muscles Auscultation: clear to auscultation bilaterally, no rales, no rhonchi and no wheezes Cardio Jugular venous pressure: no JVD Rate: regular rate Rhythm: regular rhythm GI Inspection: normal to inspection, no edema and non-distended Palpation: soft, no masses, nontender and No ascites Auscultation: normal bowel sounds Skin General skin exam: no rashes or lesions noted Trauma: no lacerations or abrasions Neuro General: alert, oriented x3, oriented, gait normal, moves all extremities, no focal motor deficits and CN's II-XI intact bilaterally Cognition: normal cognition Speech: speech normal Gait: normal gait Motor: muscle tone normal throughout Extrem General: normal to inspection, full ROM and no clubbing, cyanosis or edema Psych Appearance: grossly normal and well kempt Mental Status: mental status grossly normal Speech and Movement: speech and movement normal Affect: normal affect Objective Objective Clinical Data: Vital Signs Temperature 36.7 C 08/16/19 07:30 Temperature Source Tympanic 08/16/19 07:30 Pulse 63 08/16/19 07:30 Pulse Rhythm Regular 08/16/19 01:46 Respiratory Rate 18 08/16/19 07:30 Respiratory Effort Non-Labored 08/16/19 01:46 Respiratory Depth Normal 08/16/19 01:46 Respiratory Pattern Normal 08/16/19 01:46 Blood Pressure 161/78 H 08/16/19 07:30 Blood Pressure Position Sitting 08/14/19 18:51 Pulse Oximetry 97 08/16/19 07:30 Oxygen Delivery Method Room Air 08/16/19 07:30 Oxygen Flow Rate 0 08/16/19 07:30 Fraction of Inspired Oxygen (FIO2) 21 08/16/19 01:46 Pain Level 2 08/16/19 07:30 Comment 08/16/19 07:30 Intake & Output 08/15/19 08/15/19 08/16/19 11:59 23:59 11:59 Intake Total 1100 / 3300 2200 / 3300 1150 / 1150 Balance 1100 / 3300 2200 / 3300 1150 / 1150 Intake: IV 1100 / 2400 1300 / 2400 1150 / 1150 Oral 900 / 900 Other: Urine Color Pale Yellow Urine Appearance Clear Clear Clear Urine Odor None Comment pt denies any urinary issues voiding independently. Voiding Methods Toilet Toilet Toilet Laboratory Results WBC 7.02 k/cumm (4.4-10.8) 08/15/19 06:20 RBC 4.43 m/cumm (4.50-6.00) L 08/15/19 06:20 Hgb 14.0 g/dL (13.5-17.5) 08/15/19 06:20 Hct 43.0 % (40.0-50.0) 08/15/19 06:20 MCV 97.1 fL (80-95) H 08/15/19 06:20 MCH 31.6 pg (27.0-33.0) 08/15/19 06:20 MCHC 32.6 g/dL (32.0-36.0) 08/15/19 06:20 RDW 12.7 % (11.8-14.1) 08/15/19 06:20 Plt Count 165 x1000/uL (130-400) 08/15/19 06:20 MPV 10.6 fL (8.0-11.0) 08/15/19 06:20 Immature Gran % 0.1 % 08/15/19 06:20 Neutrophils % 72.8 08/15/19 06:20 Lymphocytes % 14.7 08/15/19 06:20 Monocytes % 11.3 08/15/19 06:20 Eosinophils % 1.0 08/15/19 06:20 Basophils % 0.1 08/15/19 06:20 Absolute Neutrophils 5.11 k/cumm (1.2-6.7) 08/15/19 06:20 Absolute Lymphocytes 1.03 k/cumm (1.2-3.4) L 08/15/19 06:20 Absolute Monocytes 0.79 k/cumm (0.11-0.7) H 08/15/19 06:20 Absolute Eosinophils 0.07 k/cumm (0.0-0.7) 08/15/19 06:20 Absolute Basophils 0.01 k/cumm (0.0-0.2) 08/15/19 06:20 Sodium 142 mmol/L (136-145) 08/15/19 06:20 Potassium 4.2 mmol/L (3.5-5.1) 08/15/19 06:20 Chloride 105 mmol/L (98-107) 08/15/19 06:20 Carbon Dioxide 26.8 mmol/L (21.0-32.0) 08/15/19 06:20 Anion Gap 10.2 mmol/L (3-11) 08/15/19 06:20 BUN 10 mg/dL (7-18) 08/15/19 06:20 Creatinine 0.82 mg/dL (0.70-1.30) 08/15/19 06:20 Estimated GFR/1.73 m2 >= 60.00 (mL/min/1.73m2) 08/15/19 06:20 Glucose 98 mg/dL (74-106) 08/15/19 06:20 Calcium 9.2 mg/dL (8.5-10.1) 08/15/19 06:20 Magnesium 1.8 mg/dL (1.8-2.4) 08/14/19 22:50 Total Bilirubin 0.5 mg/dL (0.2-1.0) 08/15/19 06:20 Conjugated Bilirubin 0.22 mg/dL (0.00-0.20) H 08/14/19 19:10 AST 16 U/L (15-37) 08/15/19 06:20 ALT 17 U/L (16-63) 08/15/19 06:20 Alkaline Phosphatase 73 U/L (46-116) 08/15/19 06:20 Troponin I < 0.05 ng/Ml (<0.06) 08/14/19 22:50 C-Reactive Protein 16.07 mg/dL (0.0-0.3) H 08/15/19 06:20 Total Protein 6.9 g/dL (6.4-8.2) 08/15/19 06:20 Albumin 2.8 g/dL (3.4-5.0) L 08/15/19 06:20 Lipase 172 U/L (73-393) 08/14/19 19:10 TSH 2.85 uIU/mL (0.36-3.74) 08/14/19 21:37 Urine Color Yellow (Yellow) 08/14/19 19:40 Urine Clarity Sl cloudy (Clear) 08/14/19 19:40 Urine pH 6.0 (5-8) 08/14/19 19:40 Ur Specific [place] >= 1.030 (1.005-1.025) H 08/14/19 19:40 Urine Protein 100 mg/dL (Negative) H 08/14/19 19:40 Urine Ketones >=160 mg/dL (Negative) H 08/14/19 19:40 Urine Blood Moderate (Negative) H 08/14/19 19:40 Urine Nitrite Negative (Negative) 08/14/19 19:40 Urine Bilirubin Moderate (Negative) H 08/14/19 19:40 Urine Urobilinogen 0.2 EU/dL (Up TO 0.2) 08/14/19 19:40 Ur Leukocyte Esterase Negative (Negative) 08/14/19 19:40 Urine RBC 3-5 HPF (0-2) H 08/14/19 19:40 Urine WBC 0-2 HPF (0-5) 08/14/19 19:40 Ur Epithelial Cells Not Applicable 08/14/19 19:40 Urine Crystals Not Applicable 08/14/19 19:40 Urine Bacteria Few HPF (Negative) 08/14/19 19:40 Urine Mucus Not Applicable 08/14/19 19:40 Ur Culture Indicated? No 08/14/19 19:40 Urine Glucose Negative mg/dL (Negative) 08/14/19:40
--- NOTE | 2019-08-16 13:29 | W.NUTCONSULT ---
Date of service: 08/16/19 Time of Service: 13:29 Nutritional Consult ASSESSMENT: 53 year old male admitted with diverticulitis. Following fiber restricted diet while in house. Met with Jose Guadalupe and discussed low fiber diet options until diet advanced. Explained importance of icluding adequate fiber once infection gone, MD to advance diet. Provided written material and contact information. Overall, Jose Guadalupe is knowledgeable of healthy well balanced meal principles. NUTRITIONAL DIAGNOSIS: educated on diet with diverticulitis versus diverticulosis- hand out provided INTERVENTION: educated on diet principles MONITORING AND EVALUATION: po intake, weight trends Time Spent in Nutritional Counseling and Treatment: 15 min spent face to face
--- NOTE | 2019-08-16 17:18 | PDOC.CMDIS ---
- If Service Date Differs Date of service: 08/16/19 Time of Service: 17:18 LACE Index Scoring Tool - Questions: Length of Stay (in days): 2 Acuity (Admit via E.D.?): Yes E.D. Visits: 1 - Answers: Total Score: 6 Risk of Readmission: Low Risk Care Management Discharge Reason for Hospitalization: Diverticulitis Discharge Plan: Jose Guadalupe will be discharged home with no new services. He will drive himself home in his private vehicle. Jose Guadalupe will follow up with his surgeon, PCP and discharge plan of care.
== END 2019-08-16 14:15 | disposition home or self-care (01) | DRG 392 ==
LOC: ER 21:49 → MS 22:22
PROVIDERS: Admitting Provider Surgery; Emergency Provider Registered Nurse Emergency; PCP Nurse Practitioner Family; Visit Provider Surgery
DX: K57.20 Diverticulitis of large intestine with perforation and abscess without bleeding (principal); I10 Essential (primary) hypertension; F10.20 Alcohol dependence, uncomplicated; Z23 Encounter for immunization; G47.33 Obstructive sleep apnea (adult) (pediatric)
CPT/HCPCS: 36415; 80053; 80076; 83690; 96361; 96365; 96374; 99222; 99232; 99238; 99285; J1650; 74177; 81003; 81015; 83735; 84443; 84484; 85025; 86140; 99284; J0131; J0744; J1885; J3010; J3490; Q9967

== ENCOUNTER 2021-10-20 16:33 | Outpatient (REF) | payer BC, SELFPAY ==
[2021-10-20 20:03] LABS: HCT 43.1 % (40.0-50.0); MCH 31.5 pg (27.0-33.0); MCHC 32.5 % (32.0-36.0); MCV 96.9 fL (80-95); MPV 11.5 fL (8.0-11.0); Platelet Count 174 10^3/uL (130-400); RBC 4.45 10^6/uL (4.36-5.78); RDW 12.6 % (11.8-14.1); RDW-SD 45.1 fL; WBC 6.65 10^3/uL (4.4-10.8)
[2021-10-20 20:15] LABS: ALT 31 U/L (16-63); AST 21 U/L (15-37); Albumin 4.2 g/dL (3.4-5.0); Alkaline Phosphatase 84 U/L (46-116); Anion Gap 9.9 mmol/L (3-11); BUN 15 mg/dL (7-18); Bilirubin, Total 0.4 mg/dL (0.2-1.0); CO2 26.1 mmol/L (21.0-32.0); CREATININE 1.1 mg/dL (0.70-1.30); Calculated LDL 156 mg/dL (<100); Chloride 104 mmol/L (98-107); Cholesterol 241 mg/dL (<200); Glucose 105 mg/dL (74-106); HDL Cholesterol 57 mg/dL (40-60); Potassium 4.2 mmol/L (3.5-5.1); Sodium 140 mmol/L (136-145); Total Protein 7.2 g/dL (6.4-8.2); Triglyceride 144 mg/dL (<150)
== END 2021-10-20 16:34 | disposition home or self-care (01) ==
LOC: NCHCN 16:33
PROVIDERS: PCP Nurse Practitioner Family; Visit Provider Nurse Practitioner Family
DX: I10 Essential (primary) hypertension (principal); E78.5 Hyperlipidemia, unspecified; F10.20 Alcohol dependence, uncomplicated
CPT/HCPCS: 80053; 80061; 85027

== ENCOUNTER 2022-10-20 19:02 | Outpatient (CLI) | payer BC, SELFPAY ==
--- NOTE | 2022-10-20 | DI.RAD_ITS ---
Exam(s) XR CHEST 2V PA LATERAL EXAM: XR CHEST 2V PA LATERAL CLINICAL HISTORY: COUGH TECHNIQUE: 2D digital imaging was performed of the chest. Two images were obtained. PA and lateral views were obtained. COMPARISON: CR CHEST 2 VIEWS PA,LAT from 10/27/2017 FINDINGS: MEDIASTINUM: Normal. HEART: Normal. PULMONARY VASCULATURE: Normal. LUNGS: Clear. PLEURAL SPACE: No pleural effusion or pneumothorax. BONE:Within normal limits for the patient's age. OTHER FINDINGS:Normal. IMPRESSION: No acute pulmonary findings. DATA REPOSITORY: RADIATION DOSE DELIVERED:
--- NOTE | 2022-10-20 20:54 | DI.VRAD_ITS ---
PROCEDURE INFORMATION: Exam: XR Chest Exam date and time: 10/20/2022 7:57 PM Age: 56 years old Clinical indication: Other: Cough TECHNIQUE: Imaging protocol: Radiologic exam of the chest. Views: 2 views. COMPARISON: CR CHEST 2 VIEWS PA,LAT 10/27/2017 4:26 PM FINDINGS: Lungs: No pulmonary consolidation is seen. Pleural spaces: No pleural effusion or pneumothorax is demonstrated. Heart/Mediastinum: The heart is normal in size. Bones/joints: The visualized bony structures appear grossly intact, as seen. There are osteophytes along the visualized spinal margin. IMPRESSION: No active disease is seen in the chest. Dictated and Authenticated by: Joseph Trejo MD. Ordering:ABI Meeks MD
== END 2022-10-20 19:22 ==
PROVIDERS: PCP Nurse Practitioner Family; Visit Provider Physician Assistant Medical
DX: R05.8 Other specified cough (principal)
CPT/HCPCS: 71046

== ENCOUNTER 2023-06-06 19:42 | Outpatient (REF) | payer BC, SELFPAY ==
[2023-06-06 20:04] LABS: ALT 26 U/L (16-63); AST 16 U/L (15-37); Albumin 4.1 g/dL (3.4-5.0); Alkaline Phosphatase 81 U/L (46-116); Anion Gap 9.6 mmol/L (3-11); BUN 14 mg/dL (7-18); Bilirubin, Total 0.5 mg/dL (0.2-1.0); CO2 26.4 mmol/L (21.0-32.0); CREATININE 0.9 mg/dL (0.70-1.30); Calcium 10.1 mg/dL (8.5-10.1); Calculated LDL 147 mg/dL (<100); Chloride 103 mmol/L (98-107); Cholesterol 241 mg/dL (<200); Estimated GFR 100.24 (mL/min/1.73m2); Glucose 101 mg/dL (74-106); HDL Cholesterol 58 mg/dL (40-60); Potassium 4.2 mmol/L (3.5-5.1); Sodium 139 mmol/L (136-145); Total Protein 7.4 g/dL (6.4-8.2); Triglyceride 182 mg/dL (<150)
[2023-06-06 20:06] LABS: Hemoglobin A1C 5.8 % (<5.7)
[2023-06-07 19:09] LABS: PSA, Screening 0.9 ng/mL (<=3.5)
[2023-06-08 09:53] LABS: HIV-1/2 Ag & Ab Screen Negative (Negative)
[2023-06-08 10:03] LABS: Hepatitis C Ab w Rflx HCV PCR Negative (Negative)
== END 2023-06-06 19:43 | disposition home or self-care (01) ==
LOC: NCHCN 19:42
PROVIDERS: PCP Nurse Practitioner Family; Visit Provider Nurse Practitioner Family
DX: Z00.00 Encounter for general adult medical examination without abnormal findings (principal); R73.9 Hyperglycemia, unspecified; G47.33 Obstructive sleep apnea (adult) (pediatric); I10 Essential (primary) hypertension; F10.20 Alcohol dependence, uncomplicated; E78.5 Hyperlipidemia, unspecified
CPT/HCPCS: 80053; 80061; 84153; 86803; 87389; 83036

== ENCOUNTER 2025-04-22 16:01 | Outpatient (REF) | payer OTHER, SELFPAY ==
[2025-04-22 19:57] LABS: Iron 36 ug/dL (65-175); Total Iron Binding Capacity 380 ug/dL (250-450); Transferrin Sat 9 % (20-55)
[2025-04-22 20:02] LABS: Abs Immature Grans 0.03 10^3/uL (0.0-0.06); HCT 41.4 % (40.0-50.0); HGB 13.1 g/dL (13.5-17.5); Immature Grans % 0.3 %; MCH 28.9 pg (27.0-33.0); MCHC 31.6 % (32.0-36.0); MCV 91 fL (80-95); RBC 4.53 10^6/uL (4.36-5.78); RDW 14.6 % (11.8-14.1); RDW-SD 48.6 fL; WBC 8.84 10^3/uL (4.4-10.8)
[2025-04-22 20:32] LABS: ALT 24 U/L (16-63); AST 22 U/L (15-37); Albumin 3.3 g/dL (3.4-5.0); Alkaline Phosphatase 112 U/L (46-116); Anion Gap 11.0 mmol/L (3-11); BUN 13 mg/dL (7-18); Bilirubin, Total 0.5 mg/dL (0.2-1.0); CO2 27.0 mmol/L (21.0-32.0); Calcium 9.6 mg/dL (8.5-10.1); Chloride 101 mmol/L (98-107); Estimated GFR 102.58 (mL/min/1.73m2); Ferritin 72 ng/mL (26-388); Folate 7.0 ng/mL (8.6-20.0); Glucose 109 mg/dL (74-106); Potassium 4.7 mmol/L (3.5-5.1); Sodium 139 mmol/L (136-145); TSH (W/Ref FT4) 2.24 uIU/mL (0.36-3.74); Total Protein 7.4 g/dL (6.4-8.2); Vitamin B12 463 pg/mL (193-986)
[2025-04-22 20:39] LABS: RBC Morphology Normal
[2025-04-22 21:08] LABS: Hemoglobin A1C 5.9 % (<5.7)
[2025-04-23 17:58] LABS: PSA, Screening 0.4 ng/mL (<=3.5)
== END 2025-04-22 16:02 | disposition home or self-care (01) ==
LOC: NCHCN 16:01
PROVIDERS: PCP Nurse Practitioner Family; Visit Provider Nurse Practitioner Family
DX: R10.84 Generalized abdominal pain (principal); D64.9 Anemia, unspecified; G89.29 Other chronic pain; N20.0 Calculus of kidney; Z12.5 Encounter for screening for malignant neoplasm of prostate; Z68.31 Body mass index [BMI] 31.0-31.9, adult
CPT/HCPCS: 80053; 84153; 82607; 82728; 82746; 83036; 83540; 83550; 84443; 85025

== ENCOUNTER 2025-04-29 02:13 | Outpatient (CLI) | payer OTHER, SELFPAY ==
[2025-04-29] MEDS: Barium Sulfate 2% W/V-Creamy Vanilla Smoothie 450 ML BTL PO (13:19)
[2025-04-29] MEDS: Barium Sulfate 2% W/V-Berry Smoothie 450 ML BTL PO (13:19)
[2025-04-29] MEDS: Normal Saline - Diluent 50 ML VIAL IJ (15:28)
[2025-04-29] MEDS: Omnipaque 350 MG/ML 100 ML BTL IJ (15:29)
[2025-04-29] MEDS: Normal Saline Flush 10 ML SYR IVP (15:29)
--- NOTE | 2025-04-29 15:44 | DI.CT_ITS ---
Exam(s) CT CHEST/ABD/PEL W EXAM: CT CHEST/ABD/PEL W CLINICAL HISTORY: ABD PAIN R10.84 CHRONIC PAIN G89.29 CALCULUS KIDNEY N20.0 X 3 MONTHS R/O. TECHNIQUE: Imaging Protocol: Axial computed tomography images with coronal and sagittal reformatted images were created and reviewed. Computer aided detection (CAD) was utilized. CONTRAST MATERIAL: Intravenous: Omnipaque 350 Contrast volume:100 ml Oral: yes / COMPARISON: CT CT ABDOMEN PELVIS W from 08/14/2019 CT ABDPELW from 02/17/2025 FINDINGS: CHEST: Pulmonary parenchyma: No consolidation. No dominant measurable mass. Tracheobronchial tree: No bronchiectasis. No mucous plugging.No bronchial wall thickening. Pleura: No effusion or pneumothorax. Mediastinum: Within normal limits. Pulmonary arteries: No visible emboli. Cardiovascular: The heart size is normal. There are mild coronary artery calcifications. No pericardial effusion. Thoracic aorta non-dilated. Bones: Unremarkable for age. No lytic or blastic lesions. No compression fractures. Soft tissues: Unremarkable. ABDOMEN and PELVIS: Liver: Normal density. No suspicious mass. Gallbladder and biliary tract: No evidence of stones or wall thickening. No biliary dilatation. Pancreas: Normal density, no abnormal calcifications or inflammatory process. Spleen: Peripherally enhancing lesion in the spleen seen on arterial phase images and not visible on venous phase images, consistent with a hemangioma. Kidneys: Normal size, contour and axis. No radiodense stones. No obstructive uropathy. No suspicious masses seen. Adrenal glands: No masses seen. Aorta: Abdominal portion non-dilated. Lymph nodes: Within normal limits. Soft tissues: Fat containing umbilical hernia. Small containing inguinal hernias. Bladder: Mild diffuse wall thickening which could be secondary to under distension. Bowel: No obstruction or bowel wall thickening. Sigmoid diverticulosis. Question of mild focal stranding. The findings could represent mild diverticulitis. Peritoneal cavity: No ascites. No focal collection. No mesenteric inflammatory response. No free air. Bones: Degenerative changes greatest at L5-S1. Reproductive organs: Unremarkable for age. IMPRESSION: No acute abnormality in the chest, abdomen or pelvis. Previously noted tiny stone in the inferior pole of the right kidney is not visible on the current exam. There is no evidence of hydronephrosis. Mild wall thickening of the urinary bladder likely secondary to under distension. Question of mild sigmoid diverticulitis. RADIATION DOSE DELIVERED: Total DLP DATA REPOSITORY: All CT scans at this facility are submitted to the National Radiology Data Registry (NRDR) Dose Index Registry (DIR) with the [employer] (ACR). RADIATION OPTIMIZATION: All CT scans at this facility use at least one of these dose optimization techniques: automated exposure control; mA and/or kV adjustment per patient size (includes targeted exams where dose is matched to clinical indication); or iterative reconstruction.
== END 2025-04-29 02:33 ==
LOC: DI 02:13
PROVIDERS: PCP Nurse Practitioner Family; Visit Provider Nurse Practitioner Family
DX: R10.84 Generalized abdominal pain (principal); N20.0 Calculus of kidney; R93.89 Abnormal findings on diagnostic imaging of other specified body structures
CPT/HCPCS: 74177; 71260; J3490

== ENCOUNTER 2025-05-07 02:13 | Outpatient (CLI) | payer OTHER, SELFPAY ==
--- NOTE | 2025-05-07 12:30 | DI.US_ITS ---
APPROVED REPORT EXAM: Comprehensive 2D, Doppler, and color-flow Echocardiogram Patient Location: Out-Patient Blogs Manager: Jazzmine Maria RDCS (AE) Indications: Cardiac murmur Other Information Study Quality: Adequate Conclusion Normal left ventricular wall thickness and chamber size. Ejection fraction is 60%. Wall motion is normal Normal right ventricular size and function Both atria are normal in size There are no structural valvular abnormalities Mild mitral and tricuspid regurgitation Estimated right ventricular systolic pressure is 37 mmHg Wall motion Left Ventricle The left ventricle is normal size. The left ventricular systolic function is normal. The left ventricular ejection fraction is within the normal range. There is normal left ventricular wall thickness. There is normal LV segmental wall motion. There is no ventricular septal defect visualized. LVEF is 60%. Right Ventricle The right ventricle is normal size. The right ventricular systolic function is normal. Atria Left atrium is mildly dilated. Right atrium is mildly dilated. The interatrial septum is intact with no evidence for an atrial septal defect. Aortic Valve The aortic valve is normal in structure. Aortic valve is trileaflet. There is no aortic valvular stenosis. No aortic regurgitation is present. Mitral Valve The mitral valve is normal in structure. No evidence of mitral valve stenosis. Mild mitral regurgitation. Tricuspid Valve The tricuspid valve is normal in structure. There is no tricuspid valve stenosis. Mild tricuspid regurgitation. The RVSP is 36.6 mmHg. Pulmonic Valve The pulmonary valve is normal in structure. There is no pulmonic valvular stenosis. There is no pulmonic valvular regurgitation. Great Vessels The aortic root is normal in size. The ascending aorta is normal in size. Aortic arch is normal in caliber. The IVC collapses <50% with inspiration. Pericardium There is no pericardial effusion. 2D Dimensions IVSD d PLAX 1.20 cm M: 0.6-1.2 Ao Root d 3.45 cm M: 3.1 - 3.7 LVPW d PLAX 1.20 cm M: 0.6 - 1.2 Ao Asc Diam d 3.21 cm M: 2.6 - 3.4 LVID d PLAX 4.73 cm M: 4.2 - 5.8 LVDs 3.22 cm M: 2.5 - 4.0 LV EF Teichholz 59.9 % FS 31.86 % LV EDV (Teich) 103.9 mL LV ESV (Teich) 41.7 mL M-Mode TAPSE 2.22 cm (M/F) >1.7 Auto EF LV EDV A4C 157.1 mL LV EDV A2C 178.2 mL LV EDV BP 167.6 mL LV ESV A4C 62.4 mL LV ESV A2C 71.6 mL LV ESV BP 66.9 mL LVEF(%) A4C 60.3 % LVEF(%) A2C 59.8 % LVEF(%) BP 60.1 % LV SV A4C 94.7 ml LV SV A2C 106.6 ml LV SV BP 100.7 ml LV CO A4C 6.8 L/min LV CO A2C 8.4 L/min LV CO BP 7.6 L/min HR A4C 71.69 BPM HR A2C 78.43 BPM LV EDV Index (BP) LA Volume LA Length A4C 6.3 cm LA Length A2C 6.8 cm LA Area A4C s 26.63 cm2 LA Area A2C s 29.74 cm2 LA Vol A4C A-L 95.24 mL LA Vol A2C A-L 110.32 mL LA Vol Biplane A- L 106.4 mL LA Vol/BSA A4C A-L LA Vol/BSA A2C A-L LA Vol/BSA BP A-L 49.2 mL/m2 LA Vol A4C MOD 90.6 mL LA Vol A2C MOD 105.5 mL LA Vol BP MOD 101.2 mL RA Volume RA Area A4C 23.0 cm2 RA ESV A4C (A-L) 71.9mL RA Vol/BSA A4C A-L RA Length A4C 6.2 cm RA ESV A4C (MOD) 72.0mL LV Diastology MV E' medial 0.091 (>0.07 m/s) MV E Vmax 1.28 (0.4-1.3 m/s) MV E/E' MED 14.15 (<14) MV A Vmax 1.30 (0.4-1.3 m/s) MV E' lateral 0.098 (>0.1 m/s) E/A Ratio 1.0 MV E/E' LAT 13.11 (<14) MV E' Average 0.094 m/s MV E/E'(average) 13.61 Aortic Valve AoV Vmax 1.55 m/s LVOT Vmax 1.31 m/s AoV Peak Grad 9.6 mmHg LVOT Peak Grad 6.8 mmHg AoV Area (Vmax) 2.63 cm2 LVOT VTI 0.237 m AoV VTI 0.325 m LVOT Mean Grad 3.9 mmHg AoV Mean Fan. 1.08 m/s LVOT SV 73.53 mL AoV Mean Grad 5.4 mmHg LVOT Diam s 1.95 cm AoV Area (VTI) 2.26 cm2 AV Regurg Peak Gr. 9.57 mmHg Velocity Ratio 0.85 Mitral Valve MV DT 244 (160-240 msec) MV Vmax TIPS 1.72 m/s MV Mean Grad 5.7 (<2mmHg) MV VTI 0.355 m Pulmonary Valve PV Vmax 1.24 (0.5-1.5 m/s) RVOT Vmax 0.97 m/s PV Peak Grad 6.1 mmHg RVOT Peak Gr. 3.8 mmHg PV Mean Fan 0.91 m/s RVOT VTI 0.167 m PV Mean Grad 3.8 mmHg RVOT Mean Gr. 1.8 mmHg Tricuspid Valve RA Pressure 8.00 mmHg TR Vmax 2.68 m/s TV S' 0.19 m/s TR Peak Grad 28.6 mmHg RVSP (TR) 36.6 mmHg
== END 2025-05-07 02:33 ==
LOC: DI 02:14
PROVIDERS: PCP Nurse Practitioner Family; Visit Provider Nurse Practitioner Family
DX: R01.1 Cardiac murmur, unspecified (principal); I08.1 Rheumatic disorders of both mitral and tricuspid valves
CPT/HCPCS: 93306

== ENCOUNTER 2025-05-28 07:37 | Day surgery (SDC) | payer OTHER, SELFPAY ==
[2025-05-28 07:45] VITALS: BP 147/91; PULSE 87; RESP 20; TEMP 36.5; O2SAT 98
[2025-05-28] MEDS: Lactated Ringers 1,000 ML 80 ML IV (08:09)
--- NOTE | 2025-05-28 08:10 | W.ANESPRE ---
General Info Date of Service Date Performed: 05/28/25 Height: 5 ft 8 in Weight: 99.5 kg Body Mass Index (BMI): 33.3 Surgical Procedure: Operation Date: 05/28/25 09:35 Proposed Procedure Side Surgeon p Colonoscopy Gabriella Burr MD Meds Allergies and Home Medications Allergies Allergy/AdvReac Type Severity Reaction Status Date / Time No Known Allergies Allergy Verified 05/28/25 07:53 Home Medication Medication Instructions Recorded lisinopril 20 mg tablet 20 mg PO DAILY 05/26/25 Current Visit Medications: Current Medications Generic Name Dose Route Start Last Admin Trade Name Freq PRN Reason Stop Dose Admin Ringer's Solution 1,000 mls @ 80 mls/hr 05/28/25 06:00 05/28/25 08:09 IV 05/28/25 23:59 80 mls/hr INFUSION LUISITO Administration IV Miscellaneous Supplies 1 each 05/28/25 06:00 Iv Access IV 05/28/25 23:59 DIRECTED LUISITO Sodium Chloride 0 ml 05/28/25 06:00 Normal Saline Flush 10 Ml Syr IV 05/28/25 23:59 PRN PRN Sodium Chloride 0 ml 05/28/25 06:00 Normal Saline 10 Ml Vial IJ 05/28/25 23:59 DIRECTED PRN Sterile Water 0 ml 05/28/25 06:00 Water,Injection,Sterile 10 Ml Vial IJ 05/28/25 23:59 DIRECTED PRN PFSH Active Problems Active Problems: Problem Status Onset Code Screening for colon cancer Acute Z12.11 Alcohol dependence Acute F10.20 YUE (obstructive sleep apnea) Chronic G47.33 Diverticulitis of intestine with abscess without bleeding Acute K57.80 Diverticulosis Acute K57.90 Colorectal polyps Acute K63.5 S/P colonoscopy Acute ~04/15/19 Z98.890 Medical History Medical History Hyperlipidemia Abdominal pain Umbilical hernia Erectile dysfunction Chest pain one episode 10/2017 while working and running up stairs, negative w/up in ER and negative stress test, no further symptoms since this one episode. Snoring Elevated serum aspartate aminotransferase level HTN (hypertension) Surgical History Surgical History History of colonoscopy Hx of tonsillectomy Tobacco Smoking/Tobacco Use Status: Never Alcohol Alcohol Intake: current Alcohol intake frequency: 0-2 drinks per day Alcohol type: beer Substance Use Substance use: Socially Substance use type: marijuana Vital Signs and Lab Results Vital Signs Most Recent Vital Signs in EMR: Most Recent Vital Signs Temp Pulse Resp BP Pulse Ox 36.5 C 87 20 147/91 H 98 05/28/25 07:45 05/28/25 07:45 05/28/25 07:45 05/28/25 07:45 05/28/25 07:45 Imaging and Studies Imaging and Studies Study information below may be from another EMR and interpreted by another provider. Please see original notes in EMR for more complete details. Stress Test Summary: 11/10/17: Impressions: Normal study after maximal exercise. Summary: 1. Stress ECG conclusions: Ho treadmill score: 13. This score predicts a low risk of cardiac events. Echocardiogram Summary: 05/07/25: Conclusion Normal left ventricular wall thickness and chamber size. Ejection fraction is 60%. Wall motion is normal Normal right ventricular size and function Both atria are normal in size There are no structural valvular abnormalities Mild mitral and tricuspid regurgitation Estimated right ventricular systolic pressure is 37 mmHg Anesthesia Assessment and Plan Anesthesia History Personal History: No History of Anesthesia Complications Family History: No Family History of Anesthesia Complications Exercise Tolerance Exercise Tolerance: Metabolic Equivalents>4 Pertinent Negatives Pertinent Negatives: No Symptoms of GERD, No Major Cardiovascular Symptoms or Complaints and No Major Pulmonary Symptoms or Complaints Cardiac & Pulmonary Exam Cardiac Exam: Heart Murmur Present Pulmonary Exam: Clear Bilateral Breath Sounds Implantable Cardiac Device Does patient have a Pacemaker or an ICD?: No Airway Exam Known Difficult Airway: No Mallampati Class: 2 Mouth Opening: Normal (> 3cm) Thyromental Distance: Greater than 3 cm Facial Hair: Full [place] Neck Range of Motion: Full ROM Neck Circumference: Normal Teeth Condition: Normal Dentition ASA Classification ASA Score: ASA 2 Emergency Case?: No NPO Status NPO Status: NPO Clears >2 hours, Solids >8 hours Anesthesia Plan Resuscitation Status: Full Code Anesthesia Technique: General Anesthesia Airway Planned: Natural Airway Monitors Used: Standard Monitors
[2025-05-28 08:19] VITALS: BMI 33.3
[2025-05-28 09:18] VITALS: BP 138/79; PULSE 90; RESP 16; TEMP 36.3; O2SAT 97
--- NOTE | 2025-05-28 09:18 | PDOC.DSDIS_ITS ---
Date of service: 05/28/25 Discharge Plan Disposition Patient Disposition: Home Condition: Good Discharge Details Reason For Visit: Abdominal pain, history of colon polyps Attending Provider: Gabriella Burr Primary Care Provider: FINN SALGADO Home Meds and New Rx's Prescriptions: Continued lisinopril 20 mg tablet 20 mg PO DAILY Discharge Instructions Instructions: Diverticulosis Additional Instructions: Your colonoscopy went well today. You had evidence of diverticulosis or outpouchings of the colon. Otherwise your colonoscopy was normal. The re commendation would be to have a repeat colonoscopy in 10 yrs. If you have any questions or concerns please contact the General Surgery office. 1. If tolerated, consume a soft, low fiber diet for 1-2 days. [address] not drive, drink alcohol, operate machinery, make critical decisions, or do activities that require coordination or balance for 24 hours. 3. Because air was put into your colon during the procedure, expelling air from your rectum (passing gas or farting) is normal. 4. You may not have a bowel movement for 1-3 days because of the colonoscopy prep. This is normal. 5. Go directly to the emergency room if you notice any of the following: Develop chills (warm to touch), or if you have a thermometer and your temperature is above 101 Difficulty breathing or difficultly swallowing Persistent vomiting Severe abdominal pain, other than gas cramps Severe chest pain Black, tarry stools Any bleeding – exceeding one tablespoon 6. Call your physician if the site where your intravenous was started becomes red, swollen, painful, and warm to touch. 7. Your physician has reviewed your pre-procedure medications. Please continue to take those medications as previously ordered. You will be given specific information/education regarding any changes to your medications before leaving. Activity:: Activity as Tolerated Diet:: As Tolerated Discharge Orders Discharge Orders: Discharge Order (Routine); Ordered 05/28/25 Ordered By: Gabriella Burr
--- NOTE | 2025-05-28 09:21 | W.COLOREPORT ---
Date of service: 05/28/25 Time of Service: 09:21 Colonoscopy Report Date of procedure: 05/28/25 Pre-op diagnosis general: Abdominal pain, history of colon polyps Post-op diagnosis procedure note: same Procedure: Colonoscopy Surgeon: Gabriella Burr Anesthesia Type: General:No Airway Estimated blood loss (mL): 1 Pathology: none sent Complications: None Disposition: PACU Indications: Patient is a 59 yo male who presented to the clinic with ongoing abdominal pain. He also had a history of colon polyps with his most recent colonoscopy in 2019. He was due for repeat colonoscopy given personal history of polyps. Prep: Miralax/Dulcolax Procedure Start Time: 08:59 Procedure End Time: 09:11 Retraction Time: 8 Findings: Evidence of rectosigmoid diverticulosis. Otherwise normal colonoscopy. Procedure Description: Informed consent was obtained. The patient was taken to the endoscopy suite and placed in the left lateral decubitus position. After adequate intravenous sedation, digital rectal exam was performed, which was normal. A colonoscope was inserted into the rectum and easily negotiated to the cecum. The ileocecal valve and appendiceal orifice were identified. The entire colonic mucosa was then carefully circumferentially inspected upon slow withdrawal of the scope. The entire colon appeared normal. In the rectosigmoid colon, there was evidence of diverticulosis. Retroflexion in the rectum was unremarkable. The patient tolerated the procedure well with no complications. Postoperatively, the patient was transferred to the recovery room in stable condition. [place] Bowel Prep [place] Bowel Prep Right Colon: 3 Left Colon: 3 Transverse Colon: 3 Total Score: 9
--- NOTE | 2025-05-28 09:23 | W.ANESPOSTOP ---
Postoperative Evaluation Date, Time and Location Date Performed: 05/28/25 Time Performed: 09:20 Patient Location: Day Surgery Unit Vital Signs Most Recent Imported Vital Signs: Most Recent Vital Signs Temp Pulse Resp BP Pulse Ox 36.3 C L 90 16 138/79 97 05/28/25 09:18 05/28/25 09:18 05/28/25 09:18 05/28/25 09:18 05/28/25 09:18 Assessment Mental Status: Awake (Alert & Oriented to Patient Baseline) Airway and Respiratory Function: Patent airway with normal (patient baseline) respiratory exam Cardiovascular Function: Hemodynamically Stable Hydration Status: Adequately Hydrated Nausea & Vomiting: No Nausea or Vomiting Pain: Pt. Denies Any Pain Peripheral Nerve Block: Patient did not receive a nerve block
[2025-05-28 09:47] VITALS: BP 144/90; PULSE 75; RESP 16; TEMP 36.3; O2SAT 98
== END 2025-05-28 10:00 | disposition home or self-care (01) ==
PROVIDERS: PCP Nurse Practitioner Family; Visit Provider Student in an Organized Health Care Education/Training Program
PROC: 0DJD8ZZ Inspection of Lower Intestinal Tract, Via Natural or Artificial Opening Endoscopic (ICD-10-PCS; CPT 45378; principal; 2025-05-28 09:30)
DX: R10.9 Unspecified abdominal pain (principal); Z86.0100 Personal history of colon polyps, unspecified; K57.30 Diverticulosis of large intestine without perforation or abscess without bleeding
CPT/HCPCS: 45378; J2704